=== PATIENT | male | born 1990 | race Caucasian/White ===

== ENCOUNTER 2022-02-22 13:24 | Emergency (ER) | payer OTHER ==
--- OUTSIDE RECORDS SUMMARY | 2022-02-22 13:27 | XMS REPORT | Continuity of Care Document ---
:1990 Author Organization [facility] t Address [facility] [place] [address] Care Team Providers Name Role Phone Andrew Lizama Attending Clinician Unavailable Payers Payer Name Policy Type Policy Number Effective Date Expiration Date S alonzo [employer] C1 [id number] [facility] Problems Condition Condition Condition Status Onset Resolution Last Treating Co mments Source Name Details Category Date Date Treatment Clinician Date [id number] Low HDL Problem Active Commo n (under 40) [facility] [id number] Hypertrigl Problem Active Co mmon yceridemia [facility] Allergies, Adverse Reactions, Alerts This patient has no known allergies or adverse reactions. Social History Social Habit Start Date Stop Date Quantity Comments Source Sex Assigned At Com mon [facility] History of Tobacco Use Co mmon [facility] Smoking Status Start Date Stop Date Source Never Smoker [facility] Medications This patient has no known medications. Vital Signs Vital Name Observation Time Observation Value Comments Source height 2021-02-28 08:00:00 70 [in_i] [facility] weight 2021-02-28 08:00:00 197.1 [lb_av] [facility] temperature 2021-02-28 08:00:00 97.2 [degF] [facility] bmi 2021-02-28 08:00:00 28.28 kg/m2 [facility] oximetry 2021-02-28 08:00:00 94 % [facility] respiratory rate 2021-02-28 08:00:00 17 /min Comm on [facility] blood pressure 2021-02-28 08:00:00 124 mm[Hg] Common [facility] - systolic [facility] blood pressure 2021-02-28 08:00:00 83 mm[Hg] [facility] - diastolic [facility] height 2021-02-03 13:30:00 70 [in_i] [facility] weight 2021-02-03 13:30:00 200.7 [lb_av] [facility] temperature 2021-02-03 13:30:00 97.9 [degF] [facility] bmi 2021-02-03 13:30:00 28.79 kg/m2 [facility] oximetry 2021-02-03 13:30:00 98 % [facility] blood pressure 2021-02-03 13:30:00 136 mm[Hg] [facility] - systolic [facility] blood pressure 2021-02-03 13:30:00 79 mm[Hg] [facility] diastolic [facility] Procedures This patient has no known procedures. Encounters Start End Encounter Admission Attending Care Care Encounter Source Date/Time Date/Time Type Type Clinicians Facility Department ID 2021-06-04 Outpatient Lizama, STLMLC STLMLC [id number] Common 13:53:48 [facility] [id number] [facility] 2021-03-06 2021-03-06 (TEL) STLMLC STLMLC [id number] Co mmon 00:00:00 00:00:00 [facility] 2021-02-28 2021-02-28 OFFICE STLMLC STLMLC [id number] Co mmon 00:00:00 00:00:00 VISIT EST Spir it PT LEVEL 3 - [facility] 2021-02-03 2021-02-03 PREV VISIT STLMLC STLMLC [id number] Common 00:00:00 00:00:00 NEW AGE [facility] 18-38 [facility] Results This patient has no known results.
[2022-02-22] MEDS ORDERED: ONDANSETRON 4 MG/2 ML VIAL ONE (13:55)
[2022-02-22] MEDS ORDERED: NA CHLORIDE 0.9% 1,000 ML ONE (13:55)
[2022-02-22] MEDS ORDERED: MORPHINE 4 MG/ML SYR ONE (13:55)
[2022-02-22 14:08] LABS: Urine Blood 2+ (Negative); Urine Glucose Negative (Negative); Urine Protein Negative (Negative); Urine pH 6.5 (5.0-7.0)
[2022-02-22 14:09] LABS: Absolute Lymphocytes (CBC) 2.3 K/uL (0.7-4.9); Hematocrit 46.9 % (39.6-49.0); Lymphocytes % 35.5 % (15.3-44.8); MCV 87.5 fL (80-100); MPV 7.1 fL (7.6-11.3); RBC Red Blood Cell Count 5.36 M/uL (4.33-5.43)
[2022-02-22 14:15] LABS: Urine Mucus Slight /HPF (None Seen); Urine RBC <5 /HPF (None Seen)
[2022-02-22 14:21] LABS: Albumin 4.3 g/dL (3.4-5.0); Bilirubin Total 0.5 mg/dL (0.2-1.0); Potassium 3.6 mmol/L (3.5-5.1); Protein, Total 8.5 g/dL (6.4-8.2)
--- NOTE | 2022-02-22 14:40 | RAD REPORT ---
[facility] 2:15 pm CLINICAL HISTORY: flank pain COMPARISON: No comparisons TECHNIQUE: CT of the abdomen and pelvis was performed. All CT scans are performed using dose optimization technique as appropriate and may include automated exposure control or mA/KV adjustment according to patient size. FINDINGS: Lower chest: No acute abnormality. Liver: No acute abnormality or suspicious lesions. Biliary: No biliary ductal dilatation. Stomach: No significant focal abnormality. Duodenum: No significant focal abnormality. Pancreas: No significant abnormality. Spleen: No significant abnormality. Adrenal: No suspicious lesions. Kidney/ureter: Mild right-sided hydroureteronephrosis secondary to a 3 millimeters stone just proxima l to the right UVJ. Retroperitoneum: No retroperitoneal adenopathy. Vascular: No aneurysm. Bowel: No significant focal abnormality. Peritoneum: No ascites or free air. Bladder: Grossly unremarkable. Reproductive: No adnexal masses. Bones: No acute fracture. Other: n/a IMPRESSION: Mild right-sided hydroureteronephrosis secondary to a 3 mm just proximal to the right UV J.
[2022-02-22] MEDS ORDERED: KETOROLAC 30 MG/ML INJ ONE (14:46)
[2022-02-22] MEDS ORDERED: TAMSULOSIN 0.4 MG SR CAP ONE (14:46)
[2022-02-22] MEDS ORDERED: MAGNESIUM SULFATE 1 gm IVPB 1 GM/100 ML BAG IV ONE (14:46)
--- NOTE | 2022-02-22 15:22 | EDPHYS ---
Physician Documentation [facility] Name: Faisal Perez Age: 31 yrs Sex: Male : 1990 Arrival Date: 02/22/2022 Time: 13:25 Bed 17 Private MD: ED Physician Edi Tesfaye HPI: 02/22 14:06 This 31 yrs old Male presents to ER via Ambulatory with complaints of Flank Pain. kb 14:06 The patient complains of pain in the right flank. The pain does not radiate. Onset: The kb symptoms/episode began/occurred 20 minute(s) ago. Modifying factors: The symptoms are alleviated by nothing. the symptoms are aggravated by nothing. Associated signs and symptoms: Pertinent positives: dysuria. Severity of pain: At its worst the pain was moderate in the emergency department the pain is unchanged. The patient has experienced a previous episode. The patient has not recently seen a physician. 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 States he has had one kidney stone in the past and it feels the same. Reports slight dysuria. Historical: - Allergies: 13:41 No Known Allergies; tw2 - Home Meds: 13:41 None [Active]; tw2 - PMHx: 13:41 Kidney stone; tw2 - PSHx: 13:41 None; tw2 - Immunization history:: Client reports having NOT received the Covid vaccine. - Social history:: Smoking status: Patient denies any tobacco usage or history of. ROS: 14:06 Constitutional: Negative for fever, chills, and weight loss. kb 14:06 : Positive for urinary symptoms, flank pain, burning with urination. 14:06 All other systems are negative. Exam: 14:06 Constitutional: This is a well developed, well nourished patient who is awake, alert, kb and in no acute distress. Head/Face: Normocephalic, atraumatic. ENT: Moist Mucous membranes Cardiovascular: Regular rate and rhythm with a normal S1 and S2. No gallops, murmurs, or rubs. No pulse deficits. Respiratory: Respirations even and unlabored. No increased work of breathing. Talking in full sentences Abdomen/GI: Soft, non-tender. No distention Skin: Warm, dry with normal turgor. Normal color. MS/ Extremity: Pulses equal, no cyanosis. Neurovascular intact. Full, normal range of motion. Neuro: Awake and alert, GCS 15, oriented to person, place, time, and situation. Moves all extremities. Normal gait. Psych: Awake, alert, with orientation to person, place and time. Behavior, mood, and affect are within normal limits. 14:06 Back: CVA tenderness, that is moderate, is noted on the right. Vital Signs: 13:40 Pulse 83; Resp 17; Temp 98.4(TE); Pulse Ox 100% on R/A; tw2 13:41 BP 170 / 94; Weight 81.65 kg (R); Pain 10/10; tw2 15:41 BP 112 / 50; Pulse 78; Resp 16; Pulse Ox 98% ; bp MDM: 13:41 Patient medically screened. kb 14:07 Data reviewed: vital signs, nurses notes. Data interpreted: Pulse oximetry: on room air kb is 100 %. Interpretation: normal. 15:21 Counseling: I had a detailed discussion with the patient and/or guardian regarding: the kb historical points, exam findings, and any diagnostic results supporting the discharge/admit diagnosis, lab results, radiology results, the need for outpatient follow up, a urologist, to return to the emergency department if symptoms worsen or persist or if there are any questions or concerns that arise at home. ED course: Pt nontoxic in appearance. Comfortable after treatment. . 02/22 13:41 Order name: CBC with Diff; Complete Time: 14:27 kb 02/22 13:41 Order name: CMP; Complete Time: 14:27 kb 02/22 13:41 Order name: Lipase; Complete Time: 14:27 kb 02/22 13:41 Order name: Urine Microscopic Only; Complete Time: 14:27 kb 02/22 13:41 Order name: CT Stone Protocol; Complete Time: 14:41 kb 02/22 14:08 Order name: Urine Dipstick-Ancillary; Complete Time: 14:08 EDMS 02/22 13:41 Order name: IV Saline Lock; Complete Time: 14:02 kb 02/22 13:41 Order name: Labs collected and sent; Complete Time: 14:02 kb 02/22 13:41 Order name: Urine Dipstick-Ancillary (obtain specimen); Complete Time: 14:09 kb Administered Medications: 13:58 Drug: NS 0.9% 1000 ml Route: IV; Rate: 1 bolus; Site: right antecubital; db 15:43 Follow up: IV Status: Completed infusion; IV Intake: 1000ml bp 13:58 Drug: Zofran (Ondansetron) 4 mg Route: IVP; Site: right antecubital; db 15:43 Follow up: Response: No adverse reaction bp 13:58 Drug: morphine 4 mg Route: IVP; Infused Over: 4 mins; Site: right antecubital; db 15:43 Follow up: Response: Pain is decreased bp 14:50 Drug: Magnesium Sulfate 1 grams Route: IVPB; Infused Over: 1 hrs; Site: right forearm; bp 15:43 Follow up: IV Status: Completed infusion; IV Intake: 100ml bp 14:50 Drug: Flomax (tamsulosin) 0.4 mg Route: PO; bp 15:42 Follow up: Response: No adverse reaction bp 14:50 Drug: Ketorolac 30 mg Route: IVP; Site: right forearm; bp 15:42 Follow up: Response: No adverse reaction; Pain is decreased bp Disposition Summary: 02/22/22 15:22 Discharge Ordered Location: Home kb Condition: Stable kb Diagnosis - Calculus of ureter kb Followup: kb - With: Emergency Department - When: As needed - Reason: Worsening of condition Followup: kb - With: Private Physician - When: 2 - 3 days - Reason: Recheck today's complaints, Continuance of care, Re-evaluation by your physician Followup: kb - With: Santo Dsouza MD - When: As needed - Reason: Recheck today's complaints Discharge Instructions: - Discharge Summary Sheet kb - Kidney Stones, [id number] kb - Dietary Guidelines to Help Prevent Kidney Stones kb Forms: - Medication Reconciliation Form kb - Thank You Letter kb - Antibiotic Education kb - Prescription Opioid Use kb Prescriptions: - Flomax 0.4 mg Oral capsule - take 1 capsule by ORAL route once daily 1/2 hour following the same meal each kb day; 10 capsule; Refills: 0, Product Selection Permitted - Augmentin 875-125 mg Oral Tablet - take 1 tablet by ORAL route every 12 hours for 10 days; 20 tablet; Refills: 0, kb Product Selection Permitted - Zofran 4 mg Oral Tablet - take 1 tablet by ORAL route every 6 hours As needed; 20 tablet; Refills: 0, kb Product Selection Permitted - Diclofenac Sodium 75 mg Oral tablet,delayed release (DR/EC) - take 1 tablet by ORAL route 2 times per day As needed; 30 tablet; Refills: 0, kb Product Selection Permitted Signatures: Dispatcher [employer] Clary Martel, Senait Salguero RN RN tw2 Deepak Fuentes RN RN bp Gunjan Zhou RN RN db Corrections: (The following items were deleted from the chart) 13:41 13:41 PMHx: None; tw
--- NOTE | 2022-02-22 15:22 | ER ---
Nurse's Notes [facility] Name: Faisal Perez Age: 31 yrs Sex: Male : 1990 Arrival Date: 02/22/2022 Time: 13:25 Bed 17 Private MD: Diagnosis: Calculus of ureter Presentation: 02/22 13:40 Chief complaint: Patient states: kidney stone. pain started about 15-20 minutes pain tw2 with urination. Coronavirus screen: At this time, the client does not indicate any symptoms associated with coronavirus-19. Ebola Screen: Patient denies travel to an Ebola-affected area in the 21 days before illness onset. Initial Sepsis Screen: Does the patient meet any 2 criteria? No. Patient's initial sepsis screen is negative. Does the patient have a suspected source of infection? No. Patient's initial sepsis screen is negative. Risk Assessment: Do you want to hurt yourself or someone else? Patient reports no desire to harm self or others. Onset of symptoms was February 22, 2022. 13:40 Method Of Arrival: Ambulatory tw2 13:40 Acuity: JUDE 3 tw2 Triage Assessment: 13:41 General: Appears uncomfortable, Behavior is calm, cooperative, appropriate for age. tw2 Pain: Complains of pain in right low back. : Reports burning with urination. Historical: - Allergies: 13:41 No Known Allergies; tw2 - Home Meds: 13:41 None [Active]; tw2 - PMHx: 13:41 Kidney stone; tw2 - PSHx: 13:41 None; tw2 - Immunization history:: Client reports having NOT received the Covid vaccine. - Social history:: Smoking status: Patient denies any tobacco usage or history of. Screenin:45 Abuse screen: Denies threats or abuse. Denies injuries from another. Nutritional bp screening: No deficits noted. Tuberculosis screening: No symptoms or risk factors identified. Fall Risk None identified. Assessment: 14:00 General: SEE TRIAGE NOTE. bp 15:41 Reassessment: PT DC HOME AMBULATORY WITH FAMILY. bp Vital Signs: 13:40 Pulse 83; Resp 17; Temp 98.4(TE); Pulse Ox 100% on R/A; tw2 13:41 BP 170 / 94; Weight 81.65 kg (R); Pain 10/10; tw2 15:41 BP 112 / 50; Pulse 78; Resp 16; Pulse Ox 98% ; bp ED Course: 13:25 Patient arrived in ED. am2 13:33 [facility] Santos FNP-C [facility] kb 13:33 Edi Tesfaye MD is Attending Physician. kb 13:41 Triage completed. tw2 13:41 Arm band placed on. tw2 13:45 Patient has correct armband on for positive identification. Bed in low position. Call bp light in reach. Side rails up X2. 13:45 Inserted saline lock: 22 gauge in right antecubital area, using aseptic technique. bp Blood collected. 13:51 Deepak Fuentes, ANTONIETA is Primary Nurse. bp 14:15 CT Stone Protocol In Process Unspecified. EDMS 15:22 Santo Dsouza MD is Referral Physician. kb 15:42 No provider procedures requiring assistance completed. IV discontinued, intact, bp bleeding controlled, No redness/swelling at site. Pressure dressing applied. Administered Medications: 13:58 Drug: NS 0.9% 1000 ml Route: IV; Rate: 1 bolus; Site: right antecubital; db 15:43 Follow up: IV Status: Completed infusion; IV Intake: 1000ml bp 13:58 Drug: Zofran (Ondansetron) 4 mg Route: IVP; Site: right antecubital; db 15:43 Follow up: Response: No adverse reaction bp 13:58 Drug: morphine 4 mg Route: IVP; Infused Over: 4 mins; Site: right antecubital; db 15:43 Follow up: Response: Pain is decreased bp 14:50 Drug: Magnesium Sulfate 1 grams Route: IVPB; Infused Over: 1 hrs; Site: right forearm; bp 15:43 Follow up: IV Status: Completed infusion; IV Intake: 100ml bp 14:50 Drug: Flomax (tamsulosin) 0.4 mg Route: PO; bp 15:42 Follow up: Response: No adverse reaction bp 14:50 Drug: Ketorolac 30 mg Route: IVP; Site: right forearm; bp 15:42 Follow up: Response: No adverse reaction; Pain is decreased bp Medication: 15:42 VIS not applicable for this client. bp Intake: 15:43 IV: 1000ml; Total: 1000ml. bp 15:43 IV: 100ml; Total: 1100ml. bp Outcome: 15:22 Discharge ordered by MD. dunn 15:42 Discharged to home ambulatory, with family. bp 15:42 Condition: stable 15:42 Discharge instructions given to patient, Instructed on discharge instructions, follow up and referral plans. medication usage, Demonstrated understanding of instructions, follow-up care, medications, Prescriptions given X 4. 15:43 Patient left the ED. bp Signatures: Dispatcher [employer] EDAZ Clary Santos, MANAGER BABY-C MANAGER BABY-Ckb Senait Garcia RN RN tw2 Marixa Gonsales [facility] Deepak Fuentes, RN RN bp Gunjan Zhou, RN RN db Corrections: (The following items were deleted from the chart) 13:41 13:41 PMHx: None; tw2 tw2
[2022-02-22 15:51] VITALS: TEMP 98.4
[2022-02-22 15:53] VITALS: BP 112/50; O2SAT 98
== END 2022-02-22 15:43 | disposition home or self-care (01) ==
LOC: ER 13:24
DX: N20.1 Calculus of ureter (principal); Z87.442 Personal history of urinary calculi
CPT/HCPCS: 85025; 36415; 83690; 80053; 76377; 74176; 99284; J3475; J7030; J2405; 81003; 81015